=== PATIENT | male | born 1985 | race Caucasian/White ===

== ENCOUNTER 2016-11-03 08:20 | Emergency (ER) | payer BC, OTHER ==
[2016-11-03 08:54] VITALS: BP 135/71
--- NOTE | 2016-11-03 10:12 | UC ---
Throat Pain/Nasal Pantera HPI - HPI Summary HPI Summary: TWO DAYS OF NONPRODUCTIVE COUGH SORE THROAT HEADACHE. NO FEVER. - History of Current Complaint Chief Complaint: UCRespiratory Stated Complaint: UPPER RESPIRATORY Time Seen by Provider: 11/03/16 08:46 Hx Obtained From: Patient Onset/Duration: Gradual Onset, Lasting Days, Still Present Severity: Mild Cough: Nonproductive Associated Signs & Symptoms: Positive: Hoarseness, Nasal Discharge - Epiglottits Risk Factors Epiglottis Risk Factors: Negative - Allergies/Home Medications Allergies/Adverse Reactions: Allergies Allergy/AdvReac Type Severity Reaction Status Date / Time No Known Allergies Allergy Verified 11/03/16 08:36 Home Medications: Home Medications Acetaminophen [Extra Strength Acetaminop] 1,000 mg PO Q8H PRN 11/03/16 [History Confirmed 11/03/16] PMH/Surg Hx/FS Hx/Imm Hx Previously Healthy: Yes Respiratory History Of: Reports: Asthma - as a child - Surgical History Surgical History: Yes Surgery Procedure, Year, and Place: wisdom tooth - Family History Known Family History: Positive: None - Social History Occupation: Employed Full-time Lives: With Family Alcohol Use: Rare Substance Use Type: None Smoking Status (MU): Never Smoked Tobacco - Immunization History Most Recent Influenza Vaccination: NO Review of Systems Constitutional: Negative Skin: Negative Eyes: Negative ENT: Sore Throat, Ear Ache, Nasal Discharge Respiratory: Cough Cardiovascular: Negative Gastrointestinal: Negative Genitourinary: Negative Motor: Negative Neurovascular: Negative Musculoskeletal: Negative Neurological: Negative Psychological: Negative All Other Systems Reviewed And Are Negative: Yes Physical Exam Triage Information Reviewed: Yes Appearance: No Pain Distress, Well-Nourished, Ill-Appearing Vital Signs: Initial Vital Signs Temp 98.1 F 11/03/16 08:37 Pulse 64 11/03/16 08:37 Resp 20 11/03/16 08:37 BP 135/71 11/03/16 08:37 Pulse Ox 99 11/03/16 08:37 Vital Signs Reviewed: Yes Eye Exam: Normal ENT Exam: Normal ENT: Positive: Normal ENT inspection, Hearing grossly normal, TMs normal Dental Exam: Normal Neck exam: Normal Neck: Positive: Supple, Nontender, No Lymphadenopathy Respiratory Exam: Normal Respiratory: Positive: Chest non-tender, Lungs clear, Normal breath sounds, No respiratory distress Cardiovascular Exam: Normal Cardiovascular: Positive: RRR, No Murmur Abdominal Exam: Normal Abdomen Description: Positive: Nontender, No Organomegaly Musculoskeletal Exam: Normal Neurological Exam: Normal Psychological Exam: Normal Skin Exam: Normal Throat Pain/Nasal Course/Dx - Differential Dx/Diagnosis Differential Diagnosis/HQI/PQRI: Otitis Media, Sinusitis, URI Provider Diagnoses: UPPER RESPIRATORY INFECTION Discharge - Discharge Plan Condition: Stable Disposition: HOME Prescriptions: Benzonatate CAP* [Tessalon 100 MG CAP*] 100 mg PO TID PRN #15 cap PRN Reason: Cough Patient Education Materials: Upper Respiratory Infection (ED), Viral Syndrome ( ED) Forms: *Work Release Referrals: Adi Richardson MD [Primary Care Provider] -
== END 2016-11-03 10:11 | disposition home or self-care (01) ==
LOC: UCCORT 08:20
DX: J06.9 Acute upper respiratory infection, unspecified (principal)
CPT/HCPCS: 87502; 87651; 99212; G0463

== ENCOUNTER 2019-01-24 13:19 | Emergency (ER) | payer BC ==
[2019-01-24 14:05] VITALS: BP 141/92
[2019-01-24] MEDS ORDERED: Ibuprofen ADULT LIQ* 600 MG/30 ML UDC PO ONE (14:33)
--- NOTE | 2019-01-24 14:37 | UC ---
General HPI - HPI Summary HPI Summary: ROLLED L ANKLE [employer]. C/O PAIN AND SWELLING. HX FX/SPRAINS TO SAME ANKLE. - History of Current Complaint Chief Complaint: UCLowerExtremity Stated Complaint: LT ANKLE INJURY Time Seen by Provider: 01/24/19 14:26 Hx Obtained From: Patient Onset/Duration: Sudden Onset Timing: Constant Pain Intensity: 9 Associated Signs & Symptoms: Positive: Edema - Allergy/Home Medications Allergies/Adverse Reactions: Allergies Allergy/AdvReac Type Severity Reaction Status Date / Time blue dye Allergy Severe FLUSHING , Verified 01/24/19 14:00 FEELS HOT blueberry Allergy Unknown FLUSHING, Verified 01/24/19 14:00 FEELS HOT Home Medications: Home Medications NK [No Home Medications Reported] 01/24/19 [History Confirmed 01/24/19] PMH/Surg Hx/FS Hx/Imm Hx Previously Healthy: Yes - Surgical History Surgical History: Yes Surgery Procedure, Year, and Place: wisdom tooth - Family History Known Family History: Positive: None - Social History Lives: With Family Alcohol Use: Rare Substance Use Type: None Smoking Status (MU): Never Smoked Tobacco - Immunization History Most Recent Influenza Vaccination: NO Review of Systems All Other Systems Reviewed And Are Negative: No Constitutional: Negative: Fever Skin: Negative: Rash Musculoskeletal: Positive: Edema - lANKLE Neurological: Negative: Paresthesia Physical Exam Triage Information Reviewed: Yes Appearance: Well-Appearing Vital Signs: Initial Vital Signs Temp 98.3 F 01/24/19 14:01 Pulse 89 01/24/19 14:01 Resp 18 01/24/19 14:01 BP 141/92 01/24/19 14:01 Pulse Ox 99 01/24/19 14:01 Vital Signs Reviewed: Yes Cardiovascular: Positive: RRR Musculoskeletal: Positive: Other: - LLE: hip, knee and achilles without deformity or tenderness. Lateral ankle with swelling and tenderness plus limited rom. foot non tender with full s/v/m function. Neurological: Positive: Alert Psychological: Positive: Age Appropriate Behavior Skin Exam: Normal Skin: Negative: Rashes Diagnostics - Radiology No standard instances Radiology Interpretation Completed By: Radiologist - #. Negative for fracture. Lateral soft tissue swelling. Course/Dx - Differential Dx - Multi-Symptom Differential Diagnoses: Other - no fx or dislocation - Diagnoses Provider Diagnosis: Ankle sprain Discharge - Sign-Out/Discharge Documenting (check all that apply): Patient Departure All imaging exams completed and their final reports reviewed: Yes - Discharge Plan Condition: Stable Disposition: HOME Patient Education Materials: Ankle Sprain (ED) Forms: *Work Release Referrals: London Yeh MD [Medical Doctor] - As Soon As Possible Additional Instructions: USE THE BOOT AND CRUTCHES UNTIL CLEARED - Billing Disposition and Condition Condition: STABLE Disposition: Home
== END 2019-01-24 14:58 | disposition home or self-care (01) ==
LOC: UCCORT 13:19
DX: S93.402A Sprain of unspecified ligament of left ankle, initial encounter (principal); X50.0XXA Overexertion from strenuous movement or load, initial encounter; Y92.9 Unspecified place or not applicable
CPT/HCPCS: 99213; A9270-GY; G0463